=== PATIENT | male | born 1980 | race Two or more races ===

== ENCOUNTER 2019-04-23 18:57 | Emergency (ER) | payer OTHER ==
[~2019-04-23] VITALS: Ht 175.3 cm; Wt 88.2 kg
[2019-04-23 19:03] VITALS: Ht 175.3 cm; Wt 88.2 kg
[2019-04-23 21:34] VITALS: BP 157/62
== END 2019-04-23 21:34 | disposition home or self-care (01) ==
LOC: ED 18:57
DX: K64.8 Other hemorrhoids (principal)